=== PATIENT | female | born 2000 | race Two or more races ===

== ENCOUNTER 2024-01-10 07:20 | Emergency (ER) | payer MEDICAID, OTHER ==
[~2024-01-10] VITALS: Ht 162.6 cm; Wt 71.9 kg
[2024-01-10] MEDS: HYDROcodone-ACET 5/325MG TAB PO ONE (07:45)
[2024-01-10] MEDS: ONDANSETRON ODT 4 MG TAB PO ONE (07:45)
[2024-01-10 07:47] VITALS: PULSE 86; RESP 16; O2SAT 97
[2024-01-10 07:58] LABS: Urine Bacteria None Seen /hpf (None Seen)
[2024-01-10 07:59] LABS: Basophils # (auto) 0 10 ^3/uL (0-0.2); Basophils % (auto) 0.9 % (0.0-2.0); Eosinophils # (auto) 0.1 10 ^3/uL (0-0.8); Hemoglobin 13.8 g/dL (12.2-16.2); Lymphocytes # (auto) 1.4 10 ^3/uL (0.4-5.4); Lymphocytes % (auto) 26.4 % (10.0-50.0); Mean Corpuscular Hemoglobin 26.7 pg (28.0-32.0); Mean Corpuscular Hgb Conc. 32.9 g/dL (32.0-36.0); Mean Corpuscular Volume 81.1 fL (80.0-100.0); Monocytes # (auto) 0.6 10 ^3/uL (0-1.3); Monocytes % (auto) 11.6 % (0.0-12.0); Neutrophils # (auto) 3.1 10 ^3/uL (1.6-8.6); Neutrophils % (auto) 59.1 % (37.0-80.0); Nucleated Red Blood Cells % 0.1 %; Platelet Count (auto) 290 10^3/uL (140-450); Red Blood Cells 5.17 10^6/uL (4.0-5.20); Red Cell Distribution Width 15.2 % (11.8-14.3); White Blood Cell 5.2 10^3/uL (4.4-10.8)
[2024-01-10 08:15] LABS: Urine Blood Negative /uL (Negative); Urine Clarity Clear (Clear); Urine Color Light-Yellow (Yellow); Urine Protein, UAD Negative (Negative); Urine Specific Gravity 1.014 (1.001-1.035); Urine Urobilinogen Normal (Negative); Urine WBC <1 /hpf (0 - 5)
[2024-01-10 08:16] LABS: Chloride 105 mmol/L (98-107); Potassium 3.8 mmol/L (3.5-5.1); Sodium 138 mmol/L (136-145)
[2024-01-10 08:17] LABS: Anion Gap 7 (5-15); Carbon Dioxide 26 mmol/L (20-31)
[2024-01-10 08:18] LABS: Calcium 10.6 mg/dL (8.7-10.4)
[2024-01-10 08:22] LABS: BUN/Creatinine Ratio 9.5 (10.0-20.0); Blood Urea Nitrogen 8 mg/dL (9-23); Glucose 102 mg/dL (74-106)
[2024-01-10 09:35] VITALS: BP 149/94; PULSE 78; RESP 16; TEMP 98.7; O2SAT 98
[2024-01-10] MEDS ORDERED: POLY335015 PO (09:39)
== END 2024-01-10 09:45 | disposition home or self-care (01) ==
LOC: ER 07:20
DX: K59.00 Constipation, unspecified (principal); R10.2 Pelvic and perineal pain; R10.31 Right lower quadrant pain
CPT/HCPCS: 36415; 74018; 76705; 80048; 81001; 84702; 85025; 99284; Q0162

== ENCOUNTER 2024-03-09 15:49 | Emergency (ER) | payer SELFPAY ==
[~2024-03-09] VITALS: Ht 165.1 cm; Wt 70.1 kg
[~2024-03-09 15:49] MED LIST: POLY335015 PO
[2024-03-09 16:51] LABS: Basophils # (auto) 0 10 ^3/uL (0-0.2); Basophils % (auto) 0.2 % (0.0-2.0); Eosinophils # (auto) 0 10 ^3/uL (0-0.8); Hematocrit 28.3 % (36.0-46.0); Red Cell Distribution Width 14.1 % (11.8-14.3)
[2024-03-09 16:52] LABS: Eosinophils % (auto) 0.1 % (0.0-7.0); Hemoglobin 9.2 g/dL (12.2-16.2); Lymphocytes % (auto) 17.3 % (10.0-50.0); Mean Corpuscular Hgb Conc. 32.6 g/dL (32.0-36.0); Mean Corpuscular Volume 79.9 fL (80.0-100.0); Monocytes # (auto) 1.6 10 ^3/uL (0-1.3); Monocytes % (auto) 13.2 % (0.0-12.0); Neutrophils # (auto) 8.2 10 ^3/uL (1.6-8.6); Neutrophils % (auto) 69.2 % (37.0-80.0); Platelet Count (auto) 278 10^3/uL (140-450); Red Blood Cells 3.54 10^6/uL (4.0-5.20); White Blood Cell 11.8 10^3/uL (4.4-10.8)
--- NOTE | 2024-03-09 17:08 | ED.PDOC ---
General HPI Comments 23Y F presents to ED for chief complaint RLQ abd pain x today with dysuria. Pt denies flank pain, fever, chest pain, and SOB. Current pain level 9/10. LMP 03/03/2024. Chief Complaint: Abdominal Pain Time Seen by MD: 16:05 Primary Care Provider: NONE Reviewed notes: Nurses Notes, Medications, Allergies Allergies: Coded Allergies: NO KNOWN ALLERGIES (Unverified , 01/10/24) Home Meds Active Scripts Polyethylene Glycol 3350 (Miralax) 17 Gm Pow, 17 GM PO Q12HP PRN for 2 Days, #4 EA Prov:BETZAIDA FUENTES MD 01/10/24 Information Source: Patient Mode of Arrival: Ambulatory Severity: Mild Timing: Hours Duration: Since onset Onset: Spontaneous Symptoms: Dysuria, Other History of: None Location: Abdomen (RLQ) Modifying factors: None associated signs and symptoms: Abdominal Pain, Dysuria Past Medical History PAST MEDICAL HISTORY: Denies Surgical History: Denies all surgeries CUSTOMER TECHNICAL SERVICES MANAGER History: Denies all CUSTOMER TECHNICAL SERVICES MANAGER Hx Family History Family History: Unknown Social History Smoker: Non-Smoker Alcohol: Denies ETOH Use Drugs: Denies Drug Use Lives In: Home Constitutional: denies: chills, diaphoresis, fatigue, fever, malaise, sweats, weakness, others EENTM: denies: blurred vision, double vision, ear bleeding, ear discharge, ear drainage, ear pain, ear ringing, eye pain, eye redness, hearing loss, mouth pain, mouth swelling, nasal discharge, nose bleeding, nose congestion, nose pain, photophobia, tearing, throat pain, throat swelling, voice changes, others Respiratory: denies: cough, hemoptysis, orthopnea, SOB at rest, shortness of breath, SOB with excertion, stridor, wheezing, others Cardiovascular: denies: chest pain, dizzy spells, diaphoresis, Dyspnea on exertion, edema, irregular heart beat, left arm pain, lightheadedness, palpitations, PND, syncope, others Gastrointestinal: reports: abdominal pain; denies: abdomen distended, blood streaked bowels, constipated, diarrhea, dysphagia, difficulty swallowing, hematemesis, melena, nausea, poor appetite, poor fluid intake, rectal bleeding, rectal pain, vomiting, others Genitourinary: reports: dysuria; denies: abnormal vagina bleeding, burning, dyspareunia, flank pain, frequency, hematuria, incontinence, pain, , vagina discharge, urgency, others Neurological: denies: dizziness, fainting, headache, left sided numbness, left sided weakness, numbness, paresthesia, pre-existing deficit, right sided numbness, right sided weakness, seizure, speech problems, tingling, tremors, weakness, others Musculoskeletal: denies: back pain, gout, joint pain, joint swelling, muscle pain, muscle stiffness, neck pain, others Integumetry: denies: bruises, change in color, change in hair/nails, dryness, laceration, lesions, lumps, rash, wounds, others Allergic/Immunocompromised: denies: Difficulty Healing, Frequent Infections, Hives, Itching, others Hematologic/Lymphatic: denies: anemia, blood clots, easy bleeding, easy bruising, swollen glands, others Endocrine: denies: excessive hunger, excessive sweating, excessive thirst, excessive urination, flushing, intolerance to cold, intolerance to heat, unexplained weight gain, unexplained weight loss, others Psychiatric: denies: anxiety, bipolar disorder, depression, hopeless, panic disorder, schizophrenia, sleepless, suicidal, others All Other Systems: Reviewed and Negative Physical Exam General Appearance: Moderate Distress HEENT: Normal ENT Inspection, Pharynx Normal, TMs Normal Neck: Full Range of Motion, Non-Tender, Normal, Normal Inspection Respiratory: Chest Non-Tender, Lungs Clear, No Accessory Muscle Use, No Res piratory Distress, Normal Breath Sounds Cardiovascular: No Edema, No JVD, No Murmur, No Gallop, Normal Peripheral Pulses, Regular Rate/Rhythm Breast Exam: Deferred Gastrointestinal: No Organomegaly, No Pulsatile Mass, Normal Bowel Sounds, RLQ, Tenderness Genitalia: Deferred Pelvic: Deferred Rectal: Deferred Extremities: No calf tenderness, Normal capillary refill, Normal inspection, Normal range of motion, Non-tender, No pedal edema Musculoskeletal : Apperance: Normal Neurologic: Alert, talent acquisition program manager II-XII nml as Tested, No Motor Deficits, Normal Affect, Normal Mood, No Sensory Deficits Cerebellar Function: Normal Reflexes: Normal Skin: Diaphoresis, Normal Color Lymphatic: No Adenopathy Was a procedure done? Was a procedure done?: No Differential Diagnosis Kidney stone (Female): Urolithiasis Kidney stone (Male): N/A Penile/Scrotal: N/A Urinary Problem (Male): N/A Urinary Problem (Female): Ectopic , Intrauterine , PID, Pyelonephritis, UTI X-Ray, Labs, Meds, VS Vital Signs Date Time Temp Pulse Resp B/P (MAP) Pulse Ox O2 Delivery O2 Flow Rate FiO2 03/09/24 20:34 122 18 129/66 03/09/24 20:04 126 20 128/69 03/09/24 20:00 98.8 126 20 128/69 (88) 100 98.8 03/09/24 18:09 99.8 149 22 115/85 (95) 99 99.8 03/09/24 18:09 149 03/09/24 16:19 135 03/09/24 15:50 98.3 156 20 139/92 (108) 96 Lab Test 03/09/24 17:20 03/09/24 16:35 Range/Units Urine Color Light-yellow Yellow Urine Clarity Clear Clear Urine pH 5.5 5.0-9.0 Urine Specific [place] 1.007 1.001-1.035 Urine Protein Negative Negative Urine Ketones Negative Negative Urine Blood Negative Negative /uL Urine Nitrite Negative Negative Urine Bilirubin Negative Negative Urine Urobilinogen Normal Negative mg/dL Urine Leukocyte Esterase Negative Negative /uL Urine RBC None seen 0 - 4 /hpf Urine WBC 1 0 - 5 /hpf Urine Squamous Epithelial Cells Few <5 /hpf Urine Bacteria None seen None Seen /hpf Urine Glucose Normal Normal mg/dL Urine Test Negative Negative White Blood Count 11.8 H 4.4-10.8 10^3/uL Red Blood Count 3.54 L 4.0-5.20 10^6/uL Hemoglobin 9.2 L 12.2-16.2 g/dL Hematocrit 28.3 L 36.0-46.0 % Mean Corpuscular Volume 79.9 L 80.0-100.0 fL Mean Corpuscular Hemoglobin 26.0 L 28.0-32.0 pg Mean Corpuscular Hemoglobin Concent 32.6 32.0-36.0 g/dL Red Cell Distribution Width 14.1 11.8-14.3 % Platelet Count 278 140-450 10^3/uL Mean Platelet Volume 8.1 6.9-10.8 fL Neutrophils (%) (Auto) 69.2 37.0-80.0 % Lymphocytes (%) (Auto) 17.3 10.0-50.0 % Monocytes (%) (Auto) 13.2 H 0.0-12.0 % Eosinophils (%) (Auto) 0.1 0.0-7.0 % Basophils (%) (Auto) 0.2 0.0-2.0 % Neutrophils # (Auto) 8.2 1.6-8.6 10 ^3/uL Lymphocytes # (Auto) 2.0 0.4-5.4 10 ^3/uL Monocytes # (Auto) 1.6 H 0-1.3 10 ^3/uL Eosinophils # (Auto) 0 0-0.8 10 ^3/uL Basophils # (Auto) 0 0-0.2 10 ^3/uL Nucleated Red Blood Cells 0.0 % Sodium Level 135 L 136-145 mmol/L Potassium Level 3.7 3.5-5.1 mmol/L Chloride Level 98 98-107 mmol/L Carbon Dioxide Level 28 20-31 mmol/L Anion Gap 9 5-15 Blood Urea Nitrogen 8 L 9-23 mg/dL Creatinine 0.81 0.550-1.02 mg/dL Glomerular Filtration Rate Calc 104 >90 mL/min BUN/Creatinine Ratio 9.9 L 10.0-20.0 Serum Glucose 109 H 74-106 mg/dL Calcium Level 10.6 H 8.7-10.4 mg/dL Total Bilirubin 0.7 0.2-1.0 mg/dL Aspartate Amino Transferase (AST) 10 L 13-40 U/L Alanine Aminotransferase (ALT) 22 7-40 U/L Alkaline Phosphatase 58 46-116 U/L Total Protein 7.4 5.7-8.2 g/dL Albumin 4.6 3.2-4.8 g/dL Lipase 28 12-53 U/L Current Medications Medications (Trade) Dose Ordered Sig/Kwasi Route Start Time Stop Time Status Last Admin Sodium Chloride 1,000 ml @ 1,000 mls/hr Q1H ONCE IV 03/09/24 18:45 03/09/24 19:44 DC 03/09/24 18:38 Ondansetron HCl (Zofran) 4 mg ONCE ONCE IV 03/09/24 19:30 03/09/24 19:34 DC 03/09/24 20:04 Morphine Sulfate 4 mg ONCE ONCE IV 03/09/24 19:30 03/09/24 19:34 DC 03/09/24 20:04 X-Ray, Labs, Meds, VS Comment No significant change in fibroid/mass from prior visit on 01/09. Advised she will need to follow up with OBGYN. Time of 1ST Reevaluation: 16:35 Reevaluation 1ST: Unchanged Patient Education/Counseling: Diagnosis, Treatment, Need For Follow Up (Follow up in the next 4-6 hours if symptoms worsen. Follow up in 24-48 hours if symptoms have not improved or worsened.) Family Education/Counseling: No Family Present Departure 1 Departure Time of Disposition: 22:46 Impression: Primary Impression: Abdominal pain Qualified Codes: R10.84 - Generalized abdominal pain Additional Impression: Fibroids Disposition: HOME / SELF CARE / HOMELESS Condition: Fair Discharged With: Self Comments Patient advised she will need to follow up with OBGYN or your primary doctor for further evaluation of her fibroids. Critical Care Note Critical Care Time?: No Stability Stability form required: No Heart Score Heart Score: Heart Score Response (Comments) Value History N/A 0 EKG N/A 0 Age N/A 0 Risk Factors N/A 0 Troponin N/A 0 Total 0 I personally scribed for ALEX PATEL REVIEW SCHEDULING COORDINATOR ([email or web address]) on 03/09/24 at 17:08. Electronically submitted by Elba Whalen ([email or web address]). I personally scribed for ALEX PATEL REVIEW SCHEDULING COORDINATOR ([email or web address]) on 03/09/24 at 17:12. Electronically submitted by Elba Whalen ([email or web address]). ALEX PATEL REVIEW SCHEDULING COORDINATOR Mar 09, 2024 17:08
[2024-03-09 17:11] LABS: Alanine Aminotransferase 22 U/L (7-40); Albumin 4.6 g/dL (3.2-4.8); Alkaline Phosphatase 58 U/L (46-116); Anion Gap 9 (5-15); Aspartate Aminotransferase 10 U/L (13-40); BUN/Creatinine Ratio 9.9 (10.0-20.0); Bilirubin, Total 0.7 mg/dL (0.2-1.0); Blood Urea Nitrogen 8 mg/dL (9-23); Calcium 10.6 mg/dL (8.7-10.4); Carbon Dioxide 28 mmol/L (20-31); Chloride 98 mmol/L (98-107); Glucose 109 mg/dL (74-106); Lipase 28 U/L (12-53); Potassium 3.7 mmol/L (3.5-5.1); Sodium 135 mmol/L (136-145); Total Protein 7.4 g/dL (5.7-8.2)
[2024-03-09] MEDS: SODIUM CHLORIDE 0.9% 1,000 ML IV ONE (18:38)
[2024-03-09 19:42] LABS: Urine Bacteria None Seen /hpf (None Seen)
[2024-03-09 19:53] LABS: Urine Blood Negative /uL (Negative); Urine Clarity Clear (Clear); Urine Color Light-Yellow (Yellow); Urine Protein, UAD Negative (Negative); Urine Specific Gravity 1.007 (1.001-1.035); Urine Squamous Epithelial Cell FEW /hpf (<5); Urine Urobilinogen Normal (Negative); Urine WBC 1 /hpf (0 - 5); Urine pH 5.5 (5.0-9.0)
[2024-03-09 20:00] VITALS: TEMP 98.8
[2024-03-09] MEDS: ONDANSETRON HCL 4 MG/2 ML VIAL IV ONE (20:04)
[2024-03-09] MEDS: MORPHINE SULFATE 4 MG/ML SYR/VIAL IV ONE (20:04)
--- NOTE | 2024-03-09 20:18 | DVH ---
Exam: CT CT AB PEL WO CON-NO ORAL OR IV History: RLQ abd pain Comparison Study: None available at time of dictation. TECHNIQUE: Multidetector CT of the abdomen was performed from lung bases to pubic symphysis. Imaging was performed without IV contrast. Axial, coronal and sagittal multiplanar reformats were obtained fr om the axial data set by the technologist. Radiation Dose Information: CT Dose: CTDI volume is 7.58 mGy. Dose-length product is 407.12 mGy*cm FINDINGS: Evaluation of solid organs is limited due to lack of intravenous contrast use. Findings: Lung Bases: No acute or significant lung base finding. Normal heart size. No pleural or pericardial effusion. Liver: The liver is normal in size. No focal lesions. Gallbladder and Biliary Tree: Unremarkable Spleen: Unremarkable Pancreas: The pancreas is grossly normal in appearance. Adrenal Glands: Unremarkable Kidneys: Kidneys are grossly normal without calculi or hydronephrosis. Bladder: Grossly unremarkable for degree of distention. Bowel: The stomach is grossly normal in appearance. Small bowel and colon are normal in caliber and d istribution. The appendix is not visualized; however, no secondary findings of acute appendicitis id entified. Ascites: Small amount of ascites around the liver Lymphadenopathy: No mesenteric, retroperitoneal or periportal lymphadenopathy. Abdominal Wall and Mesentery: Unremarkable. Vasculature: The visualized abdominal aorta is normal in size and caliber. Evaluation of abdominal a nd pelvic vessels is limited due to lack of intravenous contrast. Pelvic Organs: In the right adnexa is a 9.3 x 6.5 cm mass containing fluid fat and calcifications. Th is most likely represents dermoid. There also appear to be a mass in the uterus measuring 8 x 5.5 cm containing fluid fat and calcification. Correlate with pelvic ultrasound. Musculoskeletal: No aggressive focal bony lesions, acute fractures or dislocation. Soft tissues: Unremarkable IMPRESSION: 1. Small amount of ascites around the liver. 2. 9.3 x 6.5 cm possible dermoid in the right adnexa. 3. 8 x 5.5 cm mass in the endometrial canal containing fat fluid and calcification. Etiology uncertai n recommend pelvic ultrasound. Radiation optimization: All CT scans at this facility use at least one of these dose optimization te chniques: automated exposure control mA and/or kV adjustment per patient size (includes targeted exa ms where dose is matched to clinical indication) or iterative reconstruction. HS:Y
--- NOTE | 2024-03-09 21:58 | DVH ---
INDICATION: pelvic mass TECHNIQUE: Multiple real-time grayscale transabdominal and transvaginal sonographic images along with color and duplex Doppler of the uterus and ovaries were obtained. COMPARISON: None FINDINGS: The uterus measures 9.1 x 5.3 x 4.4 cm cm. The endometrial stripe measures 0.16 cm. Uterus is heterogeneous and there is a 6 x 4.9 x 5 cm heterogeneous mass in the wall of the uterus most like ly a fibroid. There is an anechoic area in the cervix likely a nabothian cysts measuring 1.9 x 0.6 x 2.1 cm Ascites is noted in all 4 quadrants. The right ovary not visualized. There is a an 8.6 x 6.6 by 10.7 cm heterogeneous mass in the right a dnexa. The left ovary not visualized Subsequent color and duplex Doppler interrogation of the ovaries demonstrated symmetric vascular flow to both ovaries, though this does not exclude the possibility of torsion due to the dual blood suppl y. IMPRESSION: 1. Uterus measures 9.1 5.3 x 4.4 cm. 2. There is a complex mass in the uterus measuring 6 x 4.9 by 5 cm most likely fibroid this was demo nstrated on January 10, 2024 3. Complex structure right adnexa measuring 10.7 x 6.6 x 8.6 cm. This shows minimal change from 05/2023. Recommend MRI of the pelvis for further evaluation. HS:Y
[2024-03-09] MEDS ORDERED: IBUP-1454 PO (22:49)
[2024-03-09 22:58] VITALS: BP 129/87; PULSE 120; RESP 18; O2SAT 100
[2024-03-10] MEDS ORDERED: OXYC-900 PO (12:16)
--- NOTE | 2024-03-15 18:02 | ECG ---
[facility] Test Date: 2024-03-09 Test Time: 16:19:13 Pat Name: FELICIYT FLORES Department: ER Room: Gender: F Laboratory Immunologist: MAAME : 2000 Requested By: ALEX PATEL Order Number: [id number] Reading MD: Cj Barrett Measurements Intervals [place] Rate: 135 P: 72 CT: 128 QRS: 75 QRSD: 68 T: 32 QT: 278 QTc: 417 Interpretive Statements Sinus tachycardia Probable left atrial enlargement Electronically Signed On 03-15-2024 18:10:13 PST by Cj Barrett Please click the below link to view image of tracing.
== END 2024-03-09 23:02 | disposition home or self-care (01) ==
LOC: ER 15:49
DX: R10.11 Right upper quadrant pain (principal); D25.9 Leiomyoma of uterus, unspecified; Z79.899 Other long term (current) drug therapy
CPT/HCPCS: 36415; 74176; 76830; 76856; 80053; 81001; 81025; 83690; 85025; 93005; 96361; 96374; 96375; 99285; J2270; J2405; J7030

== ENCOUNTER 2024-03-10 09:07 | Emergency (ER) | payer SELFPAY ==
[~2024-03-10] VITALS: Ht 165.1 cm; Wt 70.6 kg
[~2024-03-10 09:07] MED LIST changes: +IBUP-1454 PO
--- NOTE | 2024-03-10 10:37 | ED.PDOC ---
GI ASSESSMENT HPI Comments 23Y F presents to ED for chief complaint abd pain with bloating and constipation. Last bowel movement was 5 days ago. Pt has taken laxatives without relief. Pt was seen at [facility] ER yesterday, 03/09/2024, and was dx with fibroids. Pt states she does not have an OB appt. Chief Complaint: Abdominal Pain Time Seen by MD: 10:27 Primary Care Provider: NONE Reviewed Notes: Nurses Notes, Medications, Allergies Allergies: Coded Allergies: NO KNOWN ALLERGIES (Unverified , 01/10/24) Home Meds Active Scripts Ibuprofen (Ibuprofen) 600 Mg Tab, 1 TAB PO TID, #60 TAB Prov:ALEX PATEL 03/09/24 Polyethylene Glycol 3350 (Miralax) 17 Gm Pow, 17 GM PO Q12HP PRN for 2 Days, #4 EA Prov:BETZAIDA FUENTES MD 01/10/24 Information Source: Patient Mode of Arrival: Ambulatory Timing: Days Duration: Since onset Quality: Sharp Vomitus: None Stool: Minimal Severity: Mild Recent: None Recent Hx of: Other (fibroids) Pain Location: Suprapubic Modifying Factors: Nothing Associated sign and symptoms: Constipation, Abdominal Pain, Other Past Medical History PAST MEDICAL HISTORY: Denies Surgical History: Denies all surgeries CORPORATE TRAVEL EXPERT History: Uterine Fibroids Family History Family History: Unknown Social History Smoker: Non-Smoker Alcohol: Denies ETOH Use Drugs: Denies Drug Use Lives In: Home Constitutional: denies: chills, diaphoresis, fatigue, fever, malaise, sweats, weakness, others EENTM: denies: blurred vision, double vision, ear bleeding, ear discharge, ear drainage, ear pain, ear ringing, eye pain, eye redness, hearing loss, mouth pain, mouth swelling, nasal discharge, nose bleeding, nose congestion, nose pain, photophobia, tearing, throat pain, throat swelling, voice changes, others Respiratory: denies: cough, hemoptysis, orthopnea, SOB at rest, shortness of breath, SOB with excertion, stridor, wheezing, others Cardiovascular: denies: chest pain, dizzy spells, diaphoresis, Dyspnea on exertion, edema, irregular heart beat, left arm pain, lightheadedness, palpitations, PND, syncope, others Gastrointestinal: reports: abdomen distended, abdominal pain, constipated; den ies: blood streaked bowels, diarrhea, dysphagia, difficulty swallowing, hematemesis, melena, nausea, poor appetite, poor fluid intake, rectal bleeding, rectal pain, vomiting, others Genitourinary: denies: abnormal vagina bleeding, burning, dyspareunia, dysuria, flank pain, frequency, hematuria, incontinence, pain, , vagina discharge, urgency, others Neurological: denies: dizziness, fainting, headache, left sided numbness, left sided weakness, numbness, paresthesia, pre-existing deficit, right sided numbness, right sided weakness, seizure, speech problems, tingling, tremors, weakness, others Musculoskeletal: denies: back pain, gout, joint pain, joint swelling, muscle pain, muscle stiffness, neck pain, others Integumetry: denies: bruises, change in color, change in hair/nails, dryness, laceration, lesions, lumps, rash, wounds, others Allergic/Immunocompromised: denies: Difficulty Healing, Frequent Infections, Hives, Itching, others Hematologic/Lymphatic: denies: anemia, blood clots, easy bleeding, easy bruising, swollen glands, others Endocrine: denies: excessive hunger, excessive sweating, excessive thirst, excessive urination, flushing, intolerance to cold, intolerance to heat, unexplained weight gain, unexplained weight loss, others Psychiatric: denies: anxiety, bipolar disorder, depression, hopeless, panic disorder, schizophrenia, sleepless, suicidal, others All Other Systems: Reviewed and Negative Physical Exam General Appearance: No Apparent Distress, Normal HEENT: Normal ENT Inspection, Pharynx Normal, TMs Normal Neck: Full Range of Motion, Non-Tender, Normal, Normal Inspection Respiratory: Chest Non-Tender, Lungs Clear, No Accessory Muscle Use, No Respiratory Distress, Normal Breath Sounds Cardiovascular: No Edema, No JVD, No Murmur, No Gallop, Normal Peripheral Pulses, Regular Rate/Rhythm Breast Exam: Deferred Gastrointestinal: No Organomegaly, Non Tender, No Pulsatile Mass, Normal Bowel Sounds, Soft Genitalia: Deferred Pelvic: Deferred Rectal: Deferred Extremities: No calf tenderness, Normal capillary refill, Normal inspection, Normal range of motion, Non-tender, No pedal edema Musculoskeletal : Apperance: Normal Neurologic: Alert, caser in II-XII nml as Tested, No Motor Deficits, Normal Affect, Normal Mood, No Sensory Deficits Cerebellar Function: NOT DONE Reflexes: NOT DONE Skin: Dry, Normal Color, Warm Lymphatic: No Adenopathy Was a procedure done? Was a procedure done?: No GI differential Dx Differential Diagnosis: Constipation, Gastroenteritis, Bacterial, Viral X-Ray, Labs, Meds, VS Vital Signs Date Time Temp Pulse Resp B/P (MAP) Pulse Ox O2 Delivery O2 Flow Rate FiO2 03/10/24 11:05 133 17 99 Room Air 03/10/24 11:05 98.8 133 17 138/87 (104) 99 98.8 03/10/24 09:19 99.5 120 22 140/89 (106) 96 Current Medications Medications (Trade) Dose Ordered Sig/Kwasi Route Start Time Stop Time Status Last Admin Acetaminophen/ Hydrocodone Bitart ([place] 10/325MG Tab) 1 tab ONCE ONCE PO 03/10/24 11:00 03/10/24 11:01 DC 03/10/24 11:10 Polyethylene Glycol (Miralax 17GM Powder) 17 gm ONCE ONCE PO 03/10/24 11:30 03/10/24 11:31 DC 03/10/24 11:49 Time of 1ST Reevaluation: 10:57 Reevaluation 1ST: Unchanged Patient Education/Counseling: Diagnosis, Treatment Family Education/Counseling: No Family Present Departure 1 Departure Time of Disposition: 12:15 (Patient likely has fibroids. We will discharge patient home with analgesia and a referral to OBGYN.) Impression: Primary Impression: Fibroids Disposition: 01 HOME / SELF CARE / HOMELESS Condition: Stable Referrals: SHAGUFTA COBB DO Additional Instructions: You likely have fibroids. For pain you can take the followinam: Ibuprofen 400mg with food Noon: Acetaminophen 1000mg 4pm: Ibuprofen 400mg with food 8pm: Acetaminophen 1000mg You were prescribed oxycodone to take as needed for breakthrough pain. You were referred to OBGYN. Please call for an appointment within 1 week. If your symptoms worsening or other concerns please return to the emergency room. e-Prescriptions Oxycodone HCl (Oxycodone Hydrochloride) 5 Mg Tab 5 MG PO QID PRN for 4 Days, #16 TAB Prov: JULISA SPRAGUE MD 03/10/24 Discharged With: Self Critical Care Note Critical Care Time?: No Stability Stability form required: No Heart Score Heart Score: Heart Score Response (Comments) Value History N/A 0 EKG N/A 0 Age N/A 0 Risk Factors N/A 0 Troponin N/A 0 Total 0 I personally scribed for JULISA SPRAGUE MD ([email or web address]) on 03/10/24 at 10:37. Electronically submitted by Elba Whalen ([email or web address]). JULISA SPRAGUE MD Mar 10, 2024 10:37
[2024-03-10 11:05] VITALS: BP 138/87; PULSE 133; RESP 17; TEMP 98.8; O2SAT 99
[2024-03-10] MEDS: HYDROcodone-ACET 10/325MG TAB PO ONE (11:10)
[2024-03-10] MEDS: POLYETHYLENE GLYCOL 17 GM PWDR PO ONE (11:49)
[2024-03-10] MEDS ORDERED: OXYC-900 PO (12:16)
== END 2024-03-10 12:31 | disposition home or self-care (01) ==
LOC: ER 09:07
DX: D21.9 Benign neoplasm of connective and other soft tissue, unspecified (principal); K59.00 Constipation, unspecified; Z79.1 Long term (current) use of non-steroidal anti-inflammatories (NSAID); Z79.899 Other long term (current) drug therapy